=== PATIENT | male | born 2000 | race Caucasian/White ===

== ENCOUNTER 2021-05-05 15:02 | Emergency (ER) | payer SELFPAY ==
[~2021-05-05] VITALS: Ht 165.1 cm; Wt 70.3 kg
[~2021-05-05 15:02] MED LIST: FLUORESCEIN SODIUM 1 MG OPHTHALMIC STRIP OP ONE; PROPARACAINE (OPTHANINE 0.5%) 15 ML DROPS OP ONE
[2021-05-05 16:17] VITALS: BP_SYST 155
--- NOTE | 2021-05-05 17:00 | NUR ---
Patient to ER bed 5 to gown for evaluation. Side rails up.
--- NOTE | 2021-05-05 17:05 | NUR ---
pt. bib friend with c/o visual changes in right eye, pt. states since he has experienced itchiness to right eye and watering but today saw spots and became concerned, denies it to be painful.
--- NOTE | 2021-05-05 17:15 | NUR ---
ER at bedside examining patient.
[2021-05-05] MEDS ORDERED: OFLO5DRO6 RIGHT EYE (17:22)
[2021-05-05] MEDS ORDERED: CLOT15CR5 TP (17:46)
--- NOTE | 2021-05-05 17:47 | NUR ---
Patient given written and verbal discharge instructions and verbalizes understanding. ER Dr. Zeng discussed with patient the results and treatment provided. Patient in stable condition. ID arm band removed. Rx of Ofloxacin given. Patient educated on pain management and to follow up with PMD. Pain Scale 0. Opportunity for questions provided and answered. Medication side effect fact sheet provided.
[2021-05-05 17:48] VITALS: BP_SYST 133
== END 2021-05-05 17:48 | disposition home or self-care (01) ==
LOC: SED 15:02
DX: H10.9 Unspecified conjunctivitis (principal)
CPT/HCPCS: 99283